=== PATIENT | male | born 1955 | race Caucasian/White ===

== ENCOUNTER 2016-12-26 18:00 | Observation (INO) | payer BC ==
[~2016-12-26] VITALS: Ht 179.1 cm; Wt 93.0 kg
--- NOTE | ~2016-12-26 | HP ---
PATIENT'S NAME: IGNACIO VAZQUEZ [facility] AGE: 61 Y [address] ROOM: [place] [address] [place] [facility] [place] DATE: 12/26/2016 History & Physical DISCHARGE DATE: FAMILY PHYSICIAN: Francisco Nicole MD ATTENDING PHYSICIAN: SISI ELIZABETH DATE OF SERVICE: CHIEF COMPLAINT: Flank/bladder pain. HISTORY OF PRESENT ILLNESS: The patient is a 61-year-old male with longstanding history of urolithiasis. He developed worsening bilateral flank pain with radiation down into his suprapubic region in the course of this week. He was seen in the clinic in [place] and subsequently had a noncontrast CT which confirmed 6 mm and 4 mm stones on each side with mild hydronephrosis on the left. The patient was transferred to [facility] for further management. He denies any fevers, chills, nausea, vomiting, diarrhea, or palpitations. REVIEW OF SYSTEMS: All systems have been reviewed and negative aside from pertinent positives mentioned above. PAST MEDICAL HISTORY: Significant for benign prostatic hyperplasia, seasonal allergies, and urolithiasis. PAST SURGICAL HISTORY: Unremarkable. CURRENT MEDICATIONS: 1. Flomax. 2. Naproxen. 3. Multivitamin. 4. Montelukast. 5. Ketoconazole. 6. Desloratadine. 7. Cyclobenzaprine. SOCIAL HISTORY: Negative for any toxic habits. FAMILY HISTORY: PATIENT'S NAME: IGNACIO VAZQUEZ [facility] AGE: 61 Y [address] ROOM: [place] [address] LOCATION: [facility] [place] ADMIT DATE: 12/26/2016 History & Physical DISCHARGE DATE: FAMILY PHYSICIAN: Francisco Nicole MD ATTENDING PHYSICIAN: SISI ELIZABETH Significant for CKD in his father. PHYSICAL EXAMINATION: VITAL SIGNS: At this point, his vital signs are stable. GENERAL: Appears well-developed, well-nourished, middle-aged male, in no acute distress. Nontoxic appearing. NEUROLOGIC: Nonfocal. EYES: Show pupils are equal and reactive to light. LYMPHATIC: No cervical lymphadenopathy. ENDOCRINE: Show no thyromegaly. LUNGS: Clear to auscultation. HEART: Rate is regular. GI: Abdomen is soft, nontender. : Reveals some bilateral costovertebral angle tenderness. VASCULAR: 2+ pedal pulses. MUSCULOSKELETAL: Unremarkable. NEUROLOGIC: Nonfocal. PSYCHIATRIC: Reveals appropriate mood, cognition, and affect. SKIN: Warm and dry. Aside from a CAT scan, no other studies are available to me right now. ASSESSMENT AND PLAN: This is a 61-year-old male, who was admitted with: 1. Bilateral urolithiasis: The stones are fairly distal in both ureters, and we will try and aggressively hydrate him in the course of the night. We will continue him on Flomax. We will check his urinalysis as well as a basic metabolic profile to see if his stones are causing any azotemia. We will request Urology consultation in the morning. 2. Seasonal allergies: We will continue him on his Clarinex. 3. Benign prostatic hyperplasia: The patient is on Flomax. Additional management will depend on clinical course. Time dedicated to this patient's encounter is 25 minutes. MD DEON TOBAR/saurabh /[id number] D: T: HISTORY & PHYSICAL
--- NOTE | ~2016-12-26 | DS ---
PATIENT'S NAME: IGNACIO VAZQUEZ [facility] AGE: 61 Y [address] ROOM: [place] [address] LOCATION: [facility] [place] ADMIT DATE: 12/26/2016 Discharge Summary DISCHARGE DATE: 12/27/2016 FAMILY PHYSICIAN: Francisco Nicole MD ATTENDING PHYSICIAN: Wilbert Loco V PRIMARY DIAGNOSIS FOR HOSPITALIZATION: Urolithiasis with mild left-sided hydronephrosis. SECONDARY DIAGNOSES: 1. Seasonal allergies. 2. Benign prostatic hypertrophy. 3. History of urolithiasis. Consultants in the hospital: Urology Procedures performed: Bilateral ureteroscopy, left stone extraction, right laser lithotripsy with stent placement. RELEVANT LABS TRENDS DURING HOSPITALIZATION: 1. Hemoglobin was 15.3, WBC was 6.6, and a platelet count was 184. 2. Creatinine was 1.2 with a BUN of 16. Rest of the BMP including calcium levels were unremarkable. RELEVANT IMAGING STUDIES DONE DURING HOSPITALIZATION: The patient actually got a noncontrast abdominal CAT scan in [place] which showed 6 and 4 mm distal ureteral stones bilaterally with mild left-sided hydronephrosis. DISCHARGE MEDICATIONS: 1. Singulair 10 mg p.o. daily. 2. Multivitamins. 3. Flomax 0.4 mg p.o. daily. 4. Naproxen as needed. 5. Clarinex 5 mg p.o. daily. 6. Cyclobenzaprine 10 mg p.o. daily p.r.n. 7. Nizoral 2% shampoo. FOLLOWUP: 1. With primary care physician within next 1 to 2 weeks. 2. With Urology for bilateral ESWL on 01/06/2017. SUMMARY OF HOSPITALIZATION: Please refer to the H and P dictated by Claudy for details of hospital as mentioned. In summary, this is a 61-year-old male with longstanding history of urolithiasis who was having worsening flank and bladder pain. He was evaluated at the clinic in [place], where he underwent a noncontrast abdominal CAT scan which showed 4 and 6 mm bilateral ureteral stones with mild hydronephrosis on the left side and he was transferred to [facility] for further management. The patient's kidney function remained PATIENT'S NAME: IGNACIO VAZQUEZ [facility] AGE: 61 Y [address] ROOM: [address] [address] LOCATION: [facility] [place] ADMIT DATE: 12/26/2016 Discharge Summary DISCHARGE DATE: 12/27/2016 FAMILY PHYSICIAN: Francisco Nicole MD ATTENDING PHYSICIAN: Wilbert Loco V stable during the hospitalization. There was no evidence of UTI or sepsis either. The patient was evaluated by Urology and intervention with cystoscopy and ureteroscopy was planned. The patient subsequently underwent bilateral ureteroscopy, left stone extraction, right laser lithotripsy with stent placement. The patient did well following the procedure and was considered stable for discharge. He was advised to follow up with Urology in December for bilateral ESWL. The patient was hemodynamically stable at the time of discharge. Thank you for letting me to take part in the care of this patient. GEETA PAZ MD AG/modl /[id number] CC: Francisco Nicole MD d: 12/29/16 0231 t: 12/29/16 1025, DISCHARGE SUMMARY
--- NOTE | ~2016-12-26 | CON ---
PATIENT'S NAME: IGNACIO VAZQUEZ [facility] AGE: 61 Y [address] ROOM: [address] [address] LOCATION: [facility] [place] ADMIT DATE: 12/26/2016 Consultation DISCHARGE DATE: FAMILY PHYSICIAN: Francisco Nicole MD ATTENDING PHYSICIAN: CHONG RAZA V HISTORY OF PRESENT ILLNESS: The patient is a 61-year-old male with a long history of nephrolithiasis. The patient reports passing multiple stones over the past 14 years. He has had previous cystoscopy with stent placement and ESWL with Dr. Solorio approximately 13 years ago. The patient reports the onset of flank pain last Thursday and then developed bilateral flank pain. The patient was unable to pass the stones at this time. He was seen in [facility] where a CT scan was performed, which revealed 6 and 4 mm distal ureteral stones with mild hydronephrosis. Currently, the patient's pain is managed nicely. Also, the patient was noted to have multiple upper tract nonobstructing renal stones up to 5 mm in diameter. I discussed ureteroscopy with stone extraction or laser lithotripsy and bilateral stent placement. Risks and benefits of the procedure were discussed. I also discussed the need for ESWL to treat his upper tract stones. PAST MEDICAL HISTORY: Significant for BPH, seasonal allergies, and nephrolithiasis. PAST SURGICAL HISTORY: Previous stone extraction. MEDICATIONS: At admission were, 1. Flomax. 2. Naprosyn. 3. Multivitamin. 4. Montelukast. 5. Ketoconazole. 6. Cyclobenzaprine. 7. Desloratadine. ALLERGIES: NONE. SOCIAL HISTORY: The patient is a non-smoker with no history of alcohol abuse. REVIEW OF SYSTEMS: Negative. PATIENT'S NAME: IGNACIO VAZQUEZ [facility] AGE: 61 Y [address] ROOM: [address] [address] LOCATION: [facility] [place] ADMIT DATE: 12/26/2016 Consultation DISCHARGE DATE: FAMILY PHYSICIAN: Francisco Nicole MD ATTENDING PHYSICIAN: CHONG RAZA V PHYSICAL EXAMINATION: GENERAL: Healthy-appearing elderly male, in no acute distress. EYES: Extraocular motion intact. EARS, NOSE, MOUTH, AND THROAT: No nasal or ear drainage noted. LUNGS: Clear bilaterally. CARDIAC: Regular rhythm rate. ABDOMEN: Soft, nontender, and normoactive bowel sounds throughout. NEUROLOGIC: Grossly intact. SKIN: Within normal limits. MUSCULOSKELETAL: Full range of motion. Normal muscle tone. IMPRESSION: Bilateral nephrolithiasis with bilateral obstructing distal ureter stones. PLAN: We will proceed with cystoscopy, ureteroscopy with laser lithotripsy, stone extraction, and stent placement. We will follow up ESWL in the future. Risks and benefits discussed. MD LISA BALL/modl /[id number] CC: Francisco Nicole MD d: 12/27/16 1558 t: 12/30/16 2304, CONSULTATION REPORT
--- NOTE | ~2016-12-26 | OR ---
PATIENT'S NAME: IGNACIO VAZQUEZ [facility] AGE: 61 Y [address] ROOM: [address] [address] LOCATION: [facility] [place] ADMIT DATE: 12/26/2016 OR/Procedure Report DISCHARGE DATE: 12/27/2016 FAMILY PHYSICIAN: Francisco Nicole MD ATTENDING PHYSICIAN: CHONG RAZA V SURGEON: Charla Lemus MD EVP BUSINESS DEVELOPMENT: DATE OF PROCEDURE: 12/27/2016 PREOPERATIVE DIAGNOSIS: Bilateral nephrolithiasis. POSTOPERATIVE DIAGNOSIS: Bilateral nephrolithiasis. PROCEDURE PERFORMED: Bilateral ureteroscopy, left stone extraction, right laser lithotripsy with stent placement. ANESTHESIA: General. COMPLICATIONS: None. INDICATION FOR PROCEDURE: The patient is a 61-year-old male, who had the onset of flank pain earlier this week. Abdominopelvic CT scan reveals bilateral obstructive lower ureter stones. A 6 mm stone in distal right ureter and a 4 mm stone in the distal left ureter, also the patient has multiple nonobstructing bilateral renal stones. DETAILS OF PROCEDURE: After informed consent obtained patient taken to the operating room. A general anesthetic was applied. He was placed in the dorsal lithotomy position. The groin area was prepped and draped in normal sterile fashion. Cystoscope was introduced into the urethra and bladder without difficulty. Upon entering the bladder, the left ureteral orifice was identified. The stone was at the orifice. I attempted to basket the stone up to the cystoscope unsuccessfully. A guidewire was then passed up into the renal pelvis under fluoroscopy guidance. A balloon dilator was introduced and the distal ureter was dilated to 14 atmospheres for 3 minutes. The balloon was deflated and removed. Ureteroscope was introduced in distal ureter. The stone was identified, grasped with a basket and removed. Following this, the guidewire was then placed in the right ureteral orifice and passed up into the renal pelvis. The distal ureter was ballooned dilated to 14 atmospheres for 3.5 minutes. The balloon was deflated. Ureteroscope was then introduced on the right side up to the level of the stone. The holmium laser fiber was introduced and the stone was fragmented into multiple smaller pieces. Following this, the ureteroscope was removed and the cystoscope was back- loaded over the guidewire. A 6-Mohawk multi-length ureteral stent was passed over a guidewire up into the renal pelvis. Radiographic imaging showed good PATIENT'S NAME: IGNACIO VAZQUEZ [facility] AGE: 61 Y [address] ROOM: [place] [address] LOCATION: [facility] [place] ADMIT DATE: 12/26/2016 OR/Procedure Report DISCHARGE DATE: 12/27/2016 FAMILY PHYSICIAN: Francisco Nicole MD ATTENDING PHYSICIAN: CHONG RAZA V positioning of the stent. At this point, the bladder was emptied and the procedure terminated. The patient tolerated the procedure well and was transferred to recovery room in good condition. MD LISA BALL/saurabh /[id number] CC: Francisco Nicole MD d: 12/27/16 1925 t: 12/30/16 2306, OPERATIVE SUMMARY
[2016-12-26] MEDS ORDERED: FLOMAX0.4 MG PO (20:12)
[2016-12-26] MEDS ORDERED: SINGULAIR10 MG PO (20:12)
[2016-12-26] MEDS ORDERED: NAPROSYN500 MG PO (20:13)
[2016-12-26] MEDS ORDERED: FLEXERIL10 MG PO (20:13)
[2016-12-26] MEDS ORDERED: CLARINEX5 MG PO (20:13)
[2016-12-26] MEDS ORDERED: THERAGRAN-M1 TAB PO (20:14)
[2016-12-26] MEDS ORDERED: NIZORAL120 ML TOP (20:15)
[2016-12-26 22:10] LABS: BASOPHIL # 0.1 K/uL (0.0-0.2); BASOPHIL % 1.2 %; EOSINOPHIL # 0.2 K/uL (0.0-0.5); EOSINOPHIL % 3.7 %; HEMOGLOBIN 16.3 g/dL (12.0-17.0); IMMATURE GRANULOCYTE # 0.1 K/uL (0.0-0.3); IMMATURE GRANULOCYTE % 1.7 %; LYMPHOCYTE # 1.7 K/uL (0.8-4.0); LYMPHOCYTE % 26.2 %; MCH 30.6 pg (27.0-34.0); MCV 90.2 fl (83.0-98.0); MONOCYTE # 0.7 K/uL (0.0-1.0); MONOCYTE % 11.3 %; MPV 9.4 fl (9.4-12.4); NEUTROPHIL # (ANC) 3.7 K/uL (1.4-9.0); NEUTROPHIL % 55.9 %; NRBC % 0 /100WBC (0-0.00); PLATELET COUNT 184 K/uL (150-450); RBC 5.32 M/uL (4.00-6.00); RDW-CV 13.7 % (11.9-14.6); WBC 6.6 K/uL (4.0-11.0)
[2016-12-26 22:19] LABS: ANION GAP 11.6 (10.0-19.0); BLOOD UREA NITROGEN 16 mg/dL (6-24); CALCIUM 8.5 mg/dL (8.5-10.5); CHLORIDE 110 mMol/L (96-110); CO2 27 mMol/L (22-32); CREATININE 1.2 mg/dL (0.6-1.3); ESTIMATED GFR (MDRD EQUATION) > 60; POTASSIUM 3.6 mMol/L (3.7-5.1); SODIUM 145 mMol/L (135-145)
[2016-12-27] MEDS ORDERED: TYLENOL WITH C1 EACH PO (15:03)
[2017-01-06] MEDS ORDERED: ULTRAM50 MG PO (11:28)
== END 2016-12-27 19:00 | disposition disaster alternative care site (69) ==
LOC: GMSU 19:01
PROVIDERS: ADMIT Internal Medicine
PROC: 0TC78ZZ Extirpation of Matter from Left Ureter, Via Natural or Artificial Opening Endoscopic (ICD-10-PCS; principal; 2016-12-27)
PROC: 0TF38ZZ Fragmentation in Right Kidney Pelvis, Via Natural or Artificial Opening Endoscopic (ICD-10-PCS; 2016-12-27)
PROC: 0T768DZ Dilation of Right Ureter with Intraluminal Device, Via Natural or Artificial Opening Endoscopic (ICD-10-PCS; 2016-12-27)
DX: N13.2 Hydronephrosis with renal and ureteral calculous obstruction (principal); N40.0 Benign prostatic hyperplasia without lower urinary tract symptoms; Z98.890 Other specified postprocedural states
CPT/HCPCS: C1725; C1769; G0378; G0379; J1100; J1956; J2250; J2405; J7030

== ENCOUNTER 2017-01-03 13:38 | Emergency (ER) | payer BC ==
--- NOTE | ~2017-01-03 | ER ---
PATIENT'S NAME: IGNACIO VAZQUEZ [facility] AGE: 61 Y [address] ROOM: [place] [address] LOCATION: ED ADMIT DATE: 01/03/2017 ER/Outpatient Report DISCHARGE DATE: 01/03/2017 FAMILY PHYSICIAN: Francisco Nicole MD ATTENDING PHYSICIAN: Wild Walker Time of Patient Arrival: 1338 hours. Time of Patient Evaluation: 1420 hours. The patient was not seen on timely manner due to busy hour. CHIEF COMPLAINT: Fevers, post kidney stone removal. HISTORY OF PRESENT ILLNESS: This is a 61-year-old male presents to the ER who states that he had surgery done for cystoscopy, lithotripsy and a stent placement on the 12/27/2016. He states he did okay for a few days and then he started having troubles, not being able to urinate on , so he was evaluated back in Urology Clinic and they placed a catheter and started him on Cipro. They states that on Thursday he started running some low-grade fevers of 99-100 degrees at home. He was also prescribed Tylenol No. 3 that he has been taking for his discomfort as well. He did take 1 tablet of that around noon today. The patient's states that the only pain that he has is in the area where his stent is on the right side. He has had no further bleeding in his urine. No cough. No shortness of breath. No nasal drainage. They did speak with Dr. Urias on the phone today since their hometown does not have Urology. They decided to drive here to [place] to be evaluated. ALLERGIES: NO KNOWN ALLERGIES. MEDICATIONS: Please see medication list in nurse's notes. PAST MEDICAL HISTORY: 1. Previous stone extraction. 2. He also has BPH. 3. Seasonal allergies. 4. He has had a recent lithotripsy with stent placement as well. SOCIAL HISTORY: Denies smoking, drug, or alcohol use. REVIEW OF SYSTEMS: PATIENT'S NAME: IGNACIO VAZQUEZ [facility] AGE: 61 Y [address] ROOM: [place] [address] LOCATION: ED ADMIT DATE: 01/03/2017 ER/Outpatient Report DISCHARGE DATE: 01/03/2017 FAMILY PHYSICIAN: Francisco Nicole MD ATTENDING PHYSICIAN: Wild Walker A 10-point review of system was completed and was negative with exception of those discussed in the HPI. PHYSICAL EXAMINATION: VITAL SIGNS: Weight 90.9 kg taken, blood pressure is 141/82, pulse 84, respirations 20, temperature 98.7 degrees tympanically, saturations 95% on room air. Alok Coma Score is 15. GENERAL: Alert, calm, well-developed male, in no acute distress. HEENT: Head: Normocephalic. Eyes: Pupils are equal and reactive to light. He does display moist mucous membranes. LUNGS: Clear to auscultation bilaterally. No wheezes or crackles. Normal respiratory effort. HEART: Regular rate and rhythm. No lifts, thrills, or murmurs. ABDOMEN: Soft. It is nontender. He has good bowel sounds throughout. No masses were palpated. EXTREMITIES: No clubbing or cyanosis. He does have full range of motion of all limbs. LABORATORY DATA: CBC: White count is 11.9, hemoglobin is 15.2, platelets 181, ANC 9.1. CMS: Glucose 107, BUN 13, creatinine 1.4 otherwise unremarkable. Lactate is 1.5. Procalcitonin is 0.22. Urinalysis, UA micro: White blood cells 10-20, red blood cells 50-100, epithelial negative, bacteria few, leukocytes 500, nitrites negative. IMPRESSION: 1. Right flank pain post stent placement. 2. Urinary tract infection. ASSESSMENT AND PLAN: Discussed the patient's care with Dr. Walker. I also called Dr. Urias, who is on-call for Urology today. We recommended that we give the patient Rocephin and have him follow up in clinic tomorrow. Therefore, I did give him Rocephin 1 g IM here in the ER. The patient did have 2 Tylenol No. 3 while he was here, but states that makes him feel so drowsy, we are just wondering if we can give him anything else for pain instead. I will have him stop the Tylenol No. 3 and start him on tramadol to use as directed. He needs to continue his Cipro. Continue to push fluids and he needs to follow up with Urology on Thursday. The patient and the patient's understand and agrees with care. PATIENT'S NAME: IGNACIO VAZQUEZ [facility] AGE: 61 Y [address] ROOM: [place], [place] [address] LOCATION: [facility] ADMIT DATE: 01/03/2017 ER/Outpatient Report DISCHARGE DATE: 01/03/2017 FAMILY PHYSICIAN: Francisco Nicole MD ATTENDING PHYSICIAN: Wild Walker MARY PA PA-C FOR WILD WALKER MD ACJ/modl /[id number] d: 01/03/172236 t: 01/12/17 173, OUTPATIENT REPORT
[~2017-01-03 13:38] MED LIST: CLARINEX5 MG PO; FLEXERIL10 MG PO; FLOMAX0.4 MG PO; NAPROSYN500 MG PO; NIZORAL120 ML TOP; SINGULAIR10 MG PO; THERAGRAN-M1 TAB PO; TYLENOL WITH C1 EACH PO
[2017-01-03 15:08] LABS: BILIRUBIN URINE NEGATIVE (NEGATIVE); BLOOD URINE 250 /UL (NEGATIVE); COLOR URINE YELLOW (YELLOW); GLUCOSE URINE NEGATIVE (NEGATIVE); KETONE URINE 15 mg/dL (NEGATIVE); LEUKOCYTES URINE 500 /UL (NEGATIVE); NITRITE URINE NEGATIVE (NEGATIVE); PROTEIN URINE 30 mg/dL (NEGATIVE); SPEC GRAVITY URINE 1.015 (1.003-1.035); TURBIDITY URINE CLEAR (CLEAR); UROBILINOGEN URINE NORMAL (NORMAL)
[2017-01-03 15:21] LABS: RBC URINE 50-100 #/HPF (NEGATIVE)
[2017-01-03 15:22] LABS: AMORPHOUS URINE 1+ (NEGATIVE); BACTERIA URINE FEW (NEGATIVE); EPITHELIAL URINE NEGATIVE #/HPF (NEGATIVE); MUCUS URINE 1+ (NEGATIVE)
[2017-01-03 15:44] LABS: BASOPHIL # 0.1 K/uL (0.0-0.2); BASOPHIL % 0.6 %; EOSINOPHIL # 0.1 K/uL (0.0-0.5); HEMATOCRIT 45.8 % (37.0-53.0); HEMOGLOBIN 15.2 g/dL (12.0-17.0); IMMATURE GRANULOCYTE # 0.2 K/uL (0.0-0.3); IMMATURE GRANULOCYTE % 1.3 %; LYMPHOCYTE # 1.4 K/uL (0.8-4.0); LYMPHOCYTE % 11.3 %; MCH 30.8 pg (27.0-34.0); MCHC 33.2 gm/dL (32.0-36.5); MCV 92.7 fl (83.0-98.0); MONOCYTE # 1.2 K/uL (0.0-1.0); MONOCYTE % 9.6 %; MPV 9.5 fl (9.4-12.4); NEUTROPHIL # (ANC) 9.1 K/uL (1.4-9.0); NEUTROPHIL % 76.2 %; NRBC % 0 /100WBC (0-0.00); PLATELET COUNT 181 K/uL (150-450); RBC 4.94 M/uL (4.00-6.00); RDW-CV 13.4 % (11.9-14.6); WBC 11.9 K/uL (4.0-11.0)
[2017-01-03 16:01] LABS: ALBUMIN 3.3 gm/dL (3.5-5.0); ANION GAP 12.1 (10.0-19.0); CALCIUM 8.4 mg/dL (8.5-10.5); CREATININE 1.4 mg/dL (0.6-1.3); POTASSIUM 4.1 mMol/L (3.7-5.1); TOTAL BILIRUBIN 0.5 mg/dL (0.0-1.5); TOTAL PROTEIN 6.9 g/dL (6.0-8.4)
[2017-01-06] MEDS ORDERED: ULTRAM50 MG PO (11:28)
== END 2017-01-03 17:30 | disposition disaster alternative care site (69) ==
LOC: GMED 13:38
PROVIDERS: Physician Assistant Medical
DX: R10.9 Unspecified abdominal pain (principal); N39.0 Urinary tract infection, site not specified; Z98.890 Other specified postprocedural states
CPT/HCPCS: J0696

== ENCOUNTER → 2017-01-06 | Day surgery (SDC) | payer BC ==
[~2017-01-06] VITALS: Ht 180.3 cm; Wt 87.3 kg
[~2017-01-06] MED LIST changes: +ULTRAM50 MG PO
--- NOTE | ~2017-01-06 | OR ---
PATIENT'S NAME: IGNACIO VAZQUEZ [facility] AGE: 61 Y [address] ROOM: [place] [address] LOCATION: [facility] [place] ADMIT DATE: 01/06/2017 OR/Procedure Report DISCHARGE DATE: FAMILY PHYSICIAN: Francisco Nicole MD ATTENDING PHYSICIAN: Cristiane Dunbar SURGEON: Cristiane Dunbar MD FUSELAGE FRAMER: DATE OF PROCEDURE: 01/06/2017 PREOPERATIVE DIAGNOSIS: Bilateral nephrolithiasis. POSTOPERATIVE DIAGNOSIS: Bilateral nephrolithiasis. PROCEDURE PERFORMED: Bilateral ESWL, cystoscopy with stent removal. ANESTHESIA: MAC. COMPLICATIONS: None. INDICATION FOR PROCEDURE: The patient is a 61-year-old male, who is status post prior bilateral ureteroscopy with stone extraction on the left and laser lithotripsy on the right with stent placement. The patient now presents for treatment of his renal stones. DETAILS OF PROCEDURE: After informed consent was obtained, the patient was taken to the operating room. He was placed in the supine position on the lithotripsy table and a MAC anesthetic applied. First, his right-sided renal stone was targeted. This was 3 x 3 and received a total of 1000 shocks starting at 16 kilovolts and gradually increased to 22 kilovolts. This stone fragmented very well with treatment. The patient was then repositioned on the lithotripsy table and first his mid left pole of 6 x 6 mm stone was treated starting at 20 kilovolts and it gradually increased to 24 kilovolts. He received a total of 1300 shocks with good fragmentation of the stone. Finally, left lower pole stone, which was 4 x 4 mm, received a total of 1000 shocks at 24 kilovolts and this stone also fragmented well. The patient's groin area was then prepped and draped in normal sterile fashion. Flexible cystoscope was introduced in the urethra and bladder without difficulty. His right ureteral stent was identified, engaged with grasping forceps, and removed. Also noted the patient has had issues with retention and Garcia catheter was in place, which was removed and left out. On cystoscopy, the patient was noted to have moderate prostatic enlargement without significant median lobe enlargement. The patient tolerated his procedures well and was transferred to recovery room in good condition. PATIENT'S NAME: IGNACIO VAZQUEZ [facility] AGE: 61 Y [address] ROOM: [place] [id number] LOCATION: [facility] [place] ADMIT DATE: 01/06/2017 OR/Procedure Report DISCHARGE DATE: FAMILY PHYSICIAN: Francisco Nicole MD ATTENDING PHYSICIAN: Cristiane Dunbar CRISTIANE DUNBAR MD LISA/modl /[id number] CC: Francisco Nicole MD d: 01/06/17 2228 t: 01/19/17 0942, OPERATIVE SUMMARY
== END ==
LOC: GSDC 07:00
PROC: 0TF4XZZ Fragmentation in Left Kidney Pelvis, External Approach (ICD-10-PCS; principal; 2017-01-06)
PROC: 0TF3XZZ Fragmentation in Right Kidney Pelvis, External Approach (ICD-10-PCS; 2017-01-06)
PROC: 0TP98DZ Removal of Intraluminal Device from Ureter, Via Natural or Artificial Opening Endoscopic (ICD-10-PCS; 2017-01-06)
DX: N20.0 Calculus of kidney (principal); N39.0 Urinary tract infection, site not specified; Z79.899 Other long term (current) drug therapy
CPT/HCPCS: J1956; J2001; J2405; J2765; J7030

== ENCOUNTER → 2017-01-27 | Outpatient (CLI) | payer BC | END | disposition disaster alternative care site (69) | LOC: GRAD 09:42 | DX: N20.0 Calculus of kidney (principal); Z96.0 Presence of urogenital implants ==